=== PATIENT | female | born 2000 | race Caucasian/White ===

== ENCOUNTER 2018-08-25 03:01 | Emergency (ER) | payer MEDICAID, OTHER ==
[~2018-08-25] VITALS: Ht 162.6 cm; Wt 90.0 kg
[2018-08-25] MEDS ORDERED: ACETAMINOPHEN/CODEINE 300-30 MG TABLET PO ONE (04:45)
[2018-08-25] MEDS ORDERED: BUPIVACAINE HCL/PF 0.25% 10 ML VIAL INJ ONE (04:45)
[2018-08-25] MEDS ORDERED: CEPHALEXIN MONOHYDRATE 500 MG CAPSULE PO ONE (05:30)
[2018-08-25] MEDS ORDERED: BACITRACIN 0.9 GM PACKET OINTMENT TP ONE (05:30)
[2018-08-25 05:47] VITALS: BP 138/88
== END 2018-08-25 06:07 | disposition home or self-care (01) ==
LOC: EMS 03:08
DX: L03.031 Cellulitis of right toe (principal)
CPT/HCPCS: 10060; 99283; J3490

== ENCOUNTER 2023-04-23 08:44 | Emergency (ER) | payer OTHER ==
[~2023-04-23] VITALS: Ht 162.6 cm; Wt 84.5 kg
[2023-04-23 08:52] VITALS: TEMP 99.5
[2023-04-23 09:38] LABS: COVID AG,FIA SOURCE NASAL SWAB
[2023-04-23 09:48] LABS: RAPID GROUP A STREP NEGATIVE (NEGATIVE)
[2023-04-23 09:58] LABS: INFLUENZA TYPE A NEGATIVE FOR TYPE A (NEGATIVE); INFLUENZA TYPE B NEGATIVE FOR TYPE B (NEGATIVE); SARS-COV2 (COVID) ANTIGEN,FIA Negative (Negative)
[2023-04-23] MEDS ORDERED: AMOX500C2 PO (11:41)
[2023-04-23 11:45] VITALS: BP 125/75; PULSE 99; RESP 14
== END 2023-04-23 12:04 | disposition home or self-care (01) ==
LOC: EMS 08:44
DX: H66.93 Otitis media, unspecified, bilateral (principal); Z20.822 Contact with and (suspected) exposure to COVID-19
CPT/HCPCS: 87430; 87804; 99283